=== PATIENT | male | born 1960 | race Caucasian/White ===

== ENCOUNTER 2019-08-01 12:53 | Outpatient (CLI) | payer MEDICARE ==
--- NOTE | 2019-08-01 13:45 | CT ---
CT BRAIN NONCONTRAST: DATE: 08/01/2019 HISTORY: 59-year-old male with headache COMPARISON: none FINDINGS: There are multiple regions of encephalomalacia and gliosis of varying sizes including the following: Moderate size right MCA territory old infarction in right temporal lobe. One or several adjacent moderate-sized right MCA territory old infarction in right parietal lobe. Small right MCA territory old infarction right frontal lobe. Small bilateral superior cerebellar artery territory old infarctions in bilateral cerebellar hemisphe res. Tiny right PICA territory old infarction in the right cerebellar hemisphere. No acute intracranial hemorrhage, mass effect, midline shift, or extra-axial fluid collection. No obstructive hydrocephalus. Calvarium is intact. No high-grade opacification of visualized portions of paranasal sinuses and tympanomastoid cavities. IMPRESSION: 1. No acute intracranial findings. 2. 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
== END 2019-08-01 12:54 | disposition home or self-care (01) ==
LOC: SCSCT 12:53 → EDSTATUS 13:00
PROVIDERS: ATTEND Internal Medicine
DX: R51 Headache (principal); I25.2 Old myocardial infarction
CPT/HCPCS: 70450